=== PATIENT | male | born 1965 | race American Indian/Alaskan Native ===

== ENCOUNTER 2020-01-06 18:07 | Emergency (ER) | payer SELFPAY ==
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
[2020-01-06 20:02] LABS: Basophils % (Auto) 0.4 % (0.0-1.8); Eosinophils % (Auto) 0.3 % (0.0-4.3); Hematocrit 37.7 % (35.5-45.6); Hemoglobin 12.6 gm/dl (11.8-15.2); Lymphocytes # (Auto) 1.8 K/mm3 (1.2-5.4); Mean Corpuscular HGB Conc 33 % (32-34); Mean Corpuscular Volume 86 fl (84-94); Monocytes # (Auto) 0.7 K/mm3 (0.0-0.8); Monocytes % (Auto) 7.3 % (0.0-7.3); Platelet Count 240 K/mm3 (140-440); Red Blood Count 4.39 M/mm3 (3.65-5.03); Red Cell Distribution Width 17.2 % (13.2-15.2)
[2020-01-06 20:26] LABS: Alanine Aminotransferase 12 units/L (7-56); Albumin 4.2 g/dL (3.9-5); BUN/Creatinine Ratio 14; Blood Urea Nitrogen 13 mg/dL (9-20); Calcium 9.1 mg/dL (8.4-10.2); Hemolysis Index 2
--- NOTE | 2020-01-06 20:47 | Cat Scan Report ---
CT head/brain wo con INDICATION: MAIN: Medical Clearance Psych/confusion. HISTORY OF TUMOR REMOVAL 3 YEARS AGO PER PATIENT.. TECHNIQUE: All CT scans at this location are performed using CT dose reduction for ALARA by means of automated e xposure control. COMPARISON: None available. FINDINGS: Extensive postop change in the right frontal region. No mass effect or acute hemorrhage. No additiona l abnormalities. IMPRESSION: 1. Extensive right frontal postop change. Comparison with previous exams would be very helpful, but I see no convincing evidence of new abnormality. Signer Name: Alex Trevino MD Signed: 01/06/2020 8:42 PM Workstation Name: [id number]
[2020-01-07 07:50] LABS: Bilirubin,Urine NEG (Negative); Blood,Urine NEG (Negative); Color,Urine Yellow (Yellow); Hyaline Casts,Urine 1 /LPF; Mucus,Urine FEW /HPF; Protein,Urine <15 mg/dL mg/dL (Negative); WBC,Urine < 1.0 /HPF (0.0-6.0)
[2020-01-07 08:00] LABS: Amphetamine Screen,Urine PRESUMPTIVE NEGATIVE; Benzodiazepines Screen,Urine PRESUMPTIVE NEGATIVE; Methadone Screen,Urine PRESUMPTIVE NEGATIVE; Opiate Screen,Urine PRESUMPTIVE NEGATIVE
[2020-01-07 08:12] LABS: Cannabinoid Screen,Urine PRESUMPTIVE POSITIVE; Cocaine Screen,Urine PRESUMPTIVE POSITIVE
[2020-01-07] MEDS ORDERED: METFORMIN HCL PO SCH (15:45)
[2020-01-07] MEDS: metFORMIN 500 MG TAB PO SCH (15:53)
[2020-01-07] MEDS: GABAPENTIN 300 MG CAP PO SCH ×2 (15:53→22:10)
[2020-01-08] MEDS ORDERED: NON-FORMULARY EACH (Lisinopril [Zestril Tab] 30 MG) PO SCH (10:00)
[2020-01-08] MEDS ORDERED: LORazepam 1 MG TAB PO ONE (10:25)
[2020-01-08] MEDS ORDERED: LORazepam 1 MG TAB ONE (10:26)
[2020-01-08] MEDS: LISINOPRIL 20 MG TAB PO SCH (10:30)
[2020-01-08] MEDS: metFORMIN 500 MG TAB PO SCH ×2 (10:30→18:48)
[2020-01-08] MEDS: GABAPENTIN 300 MG CAP PO SCH ×2 (10:30→22:07)
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
[2020-01-08] MEDS ORDERED: MELATONIN 5 MG TAB PO PRN (12:30)
[2020-01-08] MEDS ORDERED: ZIPRASIDONE MESYLATE 20 MG VIAL IM SCH (13:00)
[2020-01-08] MEDS: ZIPRASIDONE MESYLATE 20 MG VIAL IM SCH ×2 (15:15→20:48)
[2020-01-08] MEDS: DIVALPROEX DR 125 MG TAB PO SCH ×2 (16:38→22:06)
[2020-01-08] MEDS: risperiDONE 0.25 MG TAB PO SCH ×2 (16:38→22:07)
[2020-01-08] MEDS: SERTRALINE 25 MG TAB PO SCH (16:38)
[2020-01-08] MEDS: traZODone 50 MG TAB PO SCH (22:07)
[2020-01-09] MEDS: ZIPRASIDONE MESYLATE 20 MG VIAL IM SCH ×2 (02:41→07:18)
[2020-01-09] MEDS: metFORMIN 500 MG TAB PO SCH ×2 (08:47→17:40)
[2020-01-09] MEDS: GABAPENTIN 300 MG CAP PO SCH ×2 (09:57→23:06)
[2020-01-09] MEDS: LISINOPRIL 20 MG TAB PO SCH (09:57)
[2020-01-09] MEDS: DIVALPROEX DR 125 MG TAB PO SCH ×2 (09:58→23:06)
[2020-01-09] MEDS: risperiDONE 0.25 MG TAB PO SCH ×2 (09:59→23:06)
[2020-01-09] MEDS: SERTRALINE 25 MG TAB PO SCH (09:59)
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
[2020-01-09] MEDS ORDERED: hydrOXYzine PAMOATE 25 MG CAP PO PRN (14:29)
[2020-01-09] MEDS: traZODone 50 MG TAB PO SCH (23:06)
[2020-01-10 02:29] VITALS: BP 128/80
== END 2020-01-10 02:33 ==
LOC: EEVIPCON 18:07 → ED 18:07
DX: R45.851 Suicidal ideations (principal); I10 Essential (primary) hypertension; E11.40 Type 2 diabetes mellitus with diabetic neuropathy, unspecified; F17.200 Nicotine dependence, unspecified, uncomplicated; F12.90 Cannabis use, unspecified, uncomplicated; F14.90 Cocaine use, unspecified, uncomplicated; F31.9 Bipolar disorder, unspecified
CPT/HCPCS: 36415; 70450; 80053; 80307; 81001; 85025; 99285; J3486; 80320; G0480